=== PATIENT | male | born 1955 | race Two or more races ===

== ENCOUNTER 2017-03-07 00:33 | Emergency (ER) | payer OTHER ==
[~2017-03-07] VITALS: Ht 162.6 cm; Wt 88.5 kg
[2017-03-07 00:33] VITALS: BP 121/91
[2017-03-07] MEDS ORDERED: ONDANSETRON HCL/PF 4 MG/2 ML VIAL ONE (00:38)
--- NOTE | 2017-03-07 00:54 | NUR ---
Patient discharged to home in stable condition. Written and verbal after care instructions given. Patient verbalizes understanding of instruction. pt under lapd custody. ambulatory with a steady gait
[2017-03-07] MEDS ORDERED: ONDANSETRON HCL/PF 4 MG/2 ML VIAL IM ONE (01:00)
== END 2017-03-07 00:56 ==
LOC: ER 00:36
DX: S66.891A Other injury of other specified muscles, fascia and tendons at wrist and hand level, right hand, initial encounter (principal); F10.129 Alcohol abuse with intoxication, unspecified; R11.0 Nausea; I10 Essential (primary) hypertension; X58.XXXA Exposure to other specified factors, initial encounter; Y93.89 Activity, other specified; Y92.89 Other specified places as the place of occurrence of the external cause; Y99.8 Other external cause status
CPT/HCPCS: 96372; 99283; A4606 ×2; A6402; J2405; Z7610 ×2